=== PATIENT | male | born 1965 | race African-American/Black ===

== ENCOUNTER → 2018-06-22 | Outpatient (CLI) | payer OTHER ==
[~2018-06-22] VITALS: Ht 188 cm; Wt 104.3 kg
[~2018-06-22] MED LIST: ALLOPURINOL 30300 M2 PO; AZILECT1 MG PO; LISINOPRIL-HCT1 EAC1 PO; PROTONIX40 MG PO; SINEMET 25-1001 EAC1 PO; XADAGO PO
[2018-06-22 08:21] VITALS: BP 146/101
--- NOTE | 2018-06-22 08:55 | EKG ---
[address] [address] ELECTROCARDIOGRAM REPORT Name: ANNABELLA NASCIMENTO Room #: REG [facility]#: [id number] ������������������ Admission: 06/22/18 ������������������ Attend Phys: Patric Salinas Discharge: ������������������ Date of : 61 Report #: [id number] ����������������������������������������������������������������� [id number] THIS REPORT FOR: //name// [facility] Test Date: 2018-06-22 Test Time: 08:35:05 Pat Name: ANNABELLA NASCIMENTO Department: Room: Gender: M Nurse Charge Rn: EDD : 1965 Requested By: Patric Salinas Order Number: [id number] MD: Neal Shelton Measurements Intervals Xenia Rate: 68 P: 30 NE: 177 QRS: -16 QRSD: 86 T: 6 QT: 396 QTc: 422 Interpretive Statements Sinus rhythm Inferior infarct, old Compared to ECG 11/29/2013 10:57:43 Myocardial infarct finding now present Ventricular premature complex(es) no longer present Electronically Signed On 06-22-2018 8:54:56 CDT by Neal Shelton [email or web address] ��������������������������������������������� <ELECTRONICALLY SIGNED> ���������������������������������������� By: Neal Shelton MD ��������������������������������������������� 06/22/18 0854 4 Neal Shelton MD /LAURA
--- NOTE | 2018-06-22 13:00 | CATHLAB ---
[facility] [address] [place] [address] INVASIVE PROCEDURE REPORT Name: ANNABELLA NASCIMENTO Room #: REG [facility]#: [id number] ������������� Admission: 06/22/18 ������������� Attend Phys: Patric Nelson Discharge: ��� ������������� ��� Date of : 61 Date of Service: 06/22/18 1259 �� Report #: [id number] �������� ��������������������������������������������[id number] THIS REPORT FOR: //name// APPROVED REPORT Study performed: 06/22/2018 10:13:13 Patient Details Patient Status: Out-Patient Room #: The patient is a 52 year-old male Event Personnel Patric Salinas Sanforizer, Sampson Ribera RN, Amy Bennett RTR, SULFATE DRIER MACHINE OPERATOR Monitor, Alexis Salas Scrub Procedures Performed Art Access - R femoral artery* Left Heart Cath w/or w/o Coronaries [id number] [facility] Hemostasis with Manual pressure 48563 Initial Mod Sed Same Phys/QHP Gr5y [id number], supervision of conscious sedation Indication Positive stress test, Pre-op clearance Procedure Narrative The Right Groin^ was infiltrated with 1% Lidocaine subcutaneous anesthesia. A PINNACLE 4FR Sheath #[id number] sheath was inserted into the RFA^. Coronary angiography was performed using coronary diagnostic catheters. The right coronary system was accessed and visualized with a JR4 catheter. The left coronary system was accessed and visualized with a JL4 catheter. The left ventricle was accessed and visualized with a JR4 catheter. Left ventricular/Aortic Valve gradient assessed via catheter pullback. Hemostasis was obtained with manual pressure following sheath removal without any complications. There was no hematoma. Intraoperative Conscious Sedation Sedation start time: 10:48 Case end Time: 11:19 Versed 2 mg Fluoro Time: 1.39 minutes Dose: DAP 2628.90 cGycm2 384 mGy Contrast Type and Amount: Omnipaque 35 ml [facility] [place] [address] INVASIVE PROCEDURE REPORT Name: HUSSEINANNABELLA RAMOS Room #: REG [facility]#: [id number] ������������� Admission: 06/22/18 ������������� Attend Phys: Patric Nelson Discharge: ��� ������������� ��� Date of : 61 Date of Service: 06/22/18 1259 �� Report #: [id number] �������� ��������������������������������������������[id number] Coronary Angiography The patient's coronary anatomy is right dominant. Diagnostic Cath Left Main Normal origin and short length bifurcates left anterior descending left circumflex. No high-grade lesions are noted LAD Moderate caliber type III vessel which courses in the anterior interventricular sulcus. First diagonal branch originates is has luminal irregularities as a vessel itself courses in the anterolateral wall. The LAD proper then continues with his shaunna mild 30% eccentric lesion which is not flow-limiting. The vessel continues on rate Toro tapering and terminates as a bifurcating vessel and the posterior aspect of the left ventricle no high-grade lesions are noted Diagonal 1 Small to moderate caliber vessel with luminal irregularities noted proximally as it courses along the anterolateral wall Circumflex Moderate to large caliber vessel coursing on the lateral aspect of the heart giving rise to several small side branches. There is no high-grade lesions noted in this vessel with only luminal irregularities. The terminal aspect of the circumflex a small posterior wall branches noted. High-grade disease OM1 Sensory the bulk of the left circumflex is this vessel as described above Right Coronary Moderate to large caliber vessel of normal origin. Has a payne's crook proximal portion without high-grade lesion. And continues posteriorly to the crux of the heart giving rise to moderate caliber posterior descending artery and terminating as a posterior lateral wall branch which is small no high-grade lesions are noted R PDA Artery caliber vessel coursing in the posterior interventricular sulcus free of high-grade disease Left Ventriculography Left Ventriculography was not performed. Hemodynamics The aortic pressure is 158/103 mmHg with a mean of 124 mmHg. The left ventricular pressure is 156/7 mmHg with a mean of mmHg. The left ventricular end diastolic pressure is 18 mmHg. Conclusion 1. Minimal coronary artery disease [facility] [address] [place] [address] INVASIVE PROCEDURE REPORT Name: PILYANNABELLA [id number] ������������� Admission: 06/22/18 ������������� Attend Phys: Patric Nelson Discharge: ��� ������������� ��� Date of : 61 Date of Service: 06/22/18 1259 �� Report #: [id number] �������� ��������������������������������������������[id number] 2. Normal hemodynamics Recommendations Cardiac Risk Reduction Program Medical Therapy ��������������������������������������������� <ELECTRONICALLY SIGNED> ���������������������������������������� By: Patric Salinas MD ��������������������������������������������� 06/22/18 1259 1259 1259 Patric Salinas MD /INF
== END | disposition home or self-care (01) ==
LOC: CATH 07:21
DX: I25.10 Atherosclerotic heart disease of native coronary artery without angina pectoris (principal); I10 Essential (primary) hypertension; Z98.890 Other specified postprocedural states